=== PATIENT | female | born 1965 | race Two or more races ===

== ENCOUNTER → 2020-07-11 | Outpatient (CLI) | payer MEDICAID ==
[~2020-07-11] MED LIST: CHOL10003 PO; GLUC15006 PO; LEVO100T PO; OMEG1CAP6 PO
== END | disposition home or self-care (01) ==
LOC: STAR 10:59
PROVIDERS: ATTEND Surgery Surgery of the Hand
DX: Z20.828 Contact with and (suspected) exposure to other viral communicable diseases (principal); M65.331 Trigger finger, right middle finger; G56.01 Carpal tunnel syndrome, right upper limb
CPT/HCPCS: 87635

== ENCOUNTER 2020-07-16 08:15 | Day surgery (SDC) | payer MEDICAID ==
[~2020-07-16] VITALS: Ht 152.4 cm; Wt 65.0 kg
[~2020-07-16 08:15] MED LIST changes: +BUPIVACAINE/PF 0.25% ONE; +BUPIVACAINE/PF 0.5% ONE; +LIDOCAINE/PF 1%, 30ML ONE
[2020-07-16] MEDS ORDERED: CHLORHEXIDINE 15 ML UDC MM STA (08:36)
[2020-07-16] MEDS ORDERED: CHLORHEXIDINE 15 ML UDC ONE (08:40)
[2020-07-16] MEDS ORDERED: LACTATED RINGERS 1,000 ML IV SCH (09:00)
[2020-07-16] MEDS ORDERED: BUPIVACAINE/PF 0.25% INFIL ONE (09:36)
[2020-07-16] MEDS ORDERED: FENTANYL PF 100 MCG/2ML ONE (09:42)
[2020-07-16] MEDS ORDERED: MEPERIDINE/PF 25MG/0.5ML IVPush PRN (10:00)
[2020-07-16] MEDS ORDERED: PROMETHAZINE 25 MG/ML, 1ML IVPush PRN (10:00)
[2020-07-16] MEDS ORDERED: ONDANSETRON 2MG/ML, 2ML IVPush PRN (10:00)
[2020-07-16] MEDS ORDERED: FENTANYL PF 100 MCG/2ML IV PRN (10:00)
[2020-07-16] MEDS ORDERED: ACETAMINOPHEN 325 MG TABLET PO PRN (10:00)
[2020-07-16] MEDS ORDERED: OXYcodone 5 MG/5 ML ORAL.SOL UDC PO PRN (10:00)
[2020-07-16] MEDS ORDERED: KETOROLAC 30 MG/1 ML ONE (10:17)
[2020-07-16] MEDS ORDERED: DEXAMETHASONE 4 MG/ML, 1ML ONE (10:17)
[2020-07-16] MEDS ORDERED: ONDANSETRON 2MG/ML, 2ML ONE (10:17)
[2020-07-16] MEDS ORDERED: PROPOFOL 10 MG/ML, 20ML ONE (10:17)
[2020-07-16] MEDS ORDERED: ACETAMINOPHEN 650 MG/20.3 ML UDC ONE (10:22)
== END 2020-07-16 11:50 | disposition home or self-care (01) ==
LOC: OUT 08:15
PROVIDERS: ATTEND Surgery Surgery of the Hand
DX: G56.01 Carpal tunnel syndrome, right upper limb (principal); M65.331 Trigger finger, right middle finger
CPT/HCPCS: 26055; 64721; J3010; J7120; J1100; J1885; J2405; J2704

== ENCOUNTER → 2020-07-31 | Outpatient (CLI) | payer MEDICAID ==
[~2020-07-31] MED LIST changes: -BUPIVACAINE/PF 0.25% ONE; -BUPIVACAINE/PF 0.5% ONE; -LIDOCAINE/PF 1%, 30ML ONE
== END | disposition home or self-care (01) ==
LOC: STAR 11:01
PROVIDERS: ATTEND Surgery Surgery of the Hand
DX: Z20.828 Contact with and (suspected) exposure to other viral communicable diseases (principal); G56.02 Carpal tunnel syndrome, left upper limb
CPT/HCPCS: 87635

== ENCOUNTER 2020-08-06 10:59 | Day surgery (SDC) | payer MEDICAID ==
[~2020-08-06] VITALS: Ht 154.9 cm; Wt 66.0 kg
[2020-08-06 11:48] VITALS: BP 112/74
[2020-08-06] MEDS ORDERED: FENTANYL PF 100 MCG/2ML ONE ×2 (11:54→13:48)
[2020-08-06] MEDS ORDERED: CHLORHEXIDINE 15 ML UDC ONE (11:55)
[2020-08-06] MEDS ORDERED: LACTATED RINGERS 1,000 ML IV SCH (12:00)
[2020-08-06] MEDS ORDERED: CHLORHEXIDINE 15 ML UDC MM ONE (12:00)
[2020-08-06] MEDS ORDERED: PROPOFOL 50 ML ONE (13:00)
[2020-08-06] MEDS ORDERED: ONDANSETRON 2MG/ML, 2ML ONE (13:05)
[2020-08-06] MEDS ORDERED: DEXAMETHASONE 4 MG/ML, 1ML ONE (13:05)
[2020-08-06] MEDS ORDERED: KETOROLAC 30 MG/1 ML ONE (13:05)
[2020-08-06] MEDS ORDERED: BUPIVACAINE/PF 0.25% ONE (13:14)
[2020-08-06] MEDS ORDERED: ACETAMINOPHEN 325 MG TABLET PO PRN (13:30)
[2020-08-06] MEDS ORDERED: DIPHENHYDRAMINE 50 MG/ML, 1ML IVPush PRN (13:30)
[2020-08-06] MEDS ORDERED: OXYcodone 5 MG/5 ML ORAL.SOL UDC PO PRN (13:30)
[2020-08-06] MEDS ORDERED: DIAZEPAM 5 MG/ML, 2ML IVPush PRN (13:30)
[2020-08-06] MEDS ORDERED: ONDANSETRON 2MG/ML, 2ML IVPush PRN (13:30)
[2020-08-06] MEDS ORDERED: PROMETHAZINE 25 MG/ML, 1ML IVPush PRN (13:30)
[2020-08-06] MEDS ORDERED: HYDROmorphone 1 MG/ML, 1ML INJ IVPush PRN (13:30)
[2020-08-06] MEDS ORDERED: FENTANYL PF 100 MCG/2ML IV PRN (13:30)
[2020-08-06] MEDS ORDERED: OXYcodone 5 MG/5 ML ORAL.SOL UDC ONE (13:48)
[2020-08-06] MEDS ORDERED: ACETAMINOPHEN 325 MG TABLET ONE (13:48)
[2020-08-06] MEDS ORDERED: ACETAMINOPHEN 650 MG/20.3 ML UDC ONE (13:48)
== END 2020-08-06 19:10 | disposition home or self-care (01) ==
LOC: OUT 10:59
PROVIDERS: ATTEND Surgery Surgery of the Hand
DX: G56.03 Carpal tunnel syndrome, bilateral upper limbs (principal); M65.332 Trigger finger, left middle finger; M65.331 Trigger finger, right middle finger; E03.9 Hypothyroidism, unspecified; Z79.1 Long term (current) use of non-steroidal anti-inflammatories (NSAID); Z79.890 Hormone replacement therapy; Z79.899 Other long term (current) drug therapy; Z82.61 Family history of arthritis
CPT/HCPCS: 26055; 64721; J2405; J2550; J2704; J3010; J7120; J1100; J1885